=== PATIENT | male | born 1980 | race African-American/Black ===

== ENCOUNTER 2018-03-18 15:24 | Emergency (ER) | payer OTHER ==
[~2018-03-18] VITALS: Ht 177.8 cm; Wt 95.4 kg
[2018-03-18] MEDS ORDERED: CeFAZolin 1 GM/DEXTROSE 50 ML IV ONE (15:45)
[2018-03-18] MEDS ORDERED: MORPHINE SULFATE 4 MG/ML SYRINGE IVP ONE (15:45)
[2018-03-18] MEDS ORDERED: ONDANSETRON HCL 4 MG/2 ML VIAL IVP ONE (15:45)
[2018-03-18] MEDS ORDERED: SODIUM CHLORIDE 0.9% 1,000 ML IV ONE (15:45)
[2018-03-18] MEDS ORDERED: KETOROLAC TROMETHAMINE 30 MG/ML VIAL IVP ONE (16:15)
[2018-03-18 17:40] VITALS: BP 128/77
== END 2018-03-18 17:45 | disposition short-term general hospital (02) ==
LOC: EMS 15:25
DX: T22.211A Burn of second degree of right forearm, initial encounter (principal); T23.291A Burn of second degree of multiple sites of right wrist and hand, initial encounter; T21.22XA Burn of second degree of abdominal wall, initial encounter; T24.211A Burn of second degree of right thigh, initial encounter; T24.212A Burn of second degree of left thigh, initial encounter; T31.11 Burns involving 10-19% of body surface with 10-19% third degree burns; X08.8XXA Exposure to other specified smoke, fire and flames, initial encounter; W40.8XXA Explosion of other specified explosive materials, initial encounter; Y93.E8 Activity, other personal hygiene; Y92.89 Other specified places as the place of occurrence of the external cause; Y99.8 Other external cause status
CPT/HCPCS: 96365; 96375; 99285; J0690; J1885; J2270; J2405; J7030